=== PATIENT | male | born 1980 | race Caucasian/White ===

== ENCOUNTER 2017-01-10 13:01 | Outpatient (RCR) | payer OTHER | END 2017-01-12 | disposition home or self-care (01) | LOC: PTY 13:01 | PROVIDERS: ATTEND Internal Medicine | DX: M25.561 Pain in right knee (principal) ==

== ENCOUNTER 2017-02-09 14:45 | Outpatient (RCR) | payer OTHER | END 2017-02-11 | disposition home or self-care (01) | LOC: PTY 14:45 | PROVIDERS: ATTEND Internal Medicine | DX: M25.561 Pain in right knee (principal) | CPT/HCPCS: 97035; 97110; 97140; G0283 ==